=== PATIENT | female | born 2000 | race African-American/Black ===

== ENCOUNTER 2018-01-02 05:17 | Emergency (ER) | payer MEDICAID ==
[~2018-01-02] VITALS: Ht 160 cm; Wt 67.0 kg
[~2018-01-02 05:17] MED LIST: AMOXICILLI250 MG/5 M OR; AMOXICILLIN500 MG PO; CORTISPORIN OTI10 ML OT; TYLENOL CHLD80 MG OR
[2018-01-02 07:00] VITALS: BP 110/68
== END 2018-01-02 07:00 | disposition home or self-care (01) ==
LOC: ED 05:17
DX: R51 Headache (principal)

== ENCOUNTER 2019-01-07 04:15 | Emergency (ER) | payer BC ==
[~2019-01-07] VITALS: Ht 30.5 cm; Wt 67.0 kg
[2019-01-07] MEDS ORDERED: TORADOL PO (05:53)
[2019-01-07] MEDS ORDERED: IMITREX100 M1 PO (05:53)
[2019-01-07 06:20] VITALS: BP 93/51
== END 2019-01-07 06:20 | disposition home or self-care (01) | DRG 103 ==
LOC: ED 04:15
DX: G43.909 Migraine, unspecified, not intractable, without status migrainosus (principal)

== ENCOUNTER 2019-03-01 20:25 | Emergency (ER) | payer BC ==
[~2019-03-01] VITALS: Ht 38.1 cm; Wt 67.8 kg
[~2019-03-01 20:25] MED LIST changes: +IMITREX100 M1 PO; +TORADOL PO
[2019-03-01] MEDS ORDERED: ZOFRAN4 MG/TAB PO (22:05)
[2019-03-01] MEDS ORDERED: MAXALT10 MG PO (22:05)
[2019-03-01 22:08] VITALS: BP 112/69
== END 2019-03-01 22:08 | disposition home or self-care (01) | DRG 103 ==
LOC: ED 20:25
DX: G43.909 Migraine, unspecified, not intractable, without status migrainosus (principal)

== ENCOUNTER 2019-04-07 | Emergency (ER) | payer BC ==
[~2019-04-07] MED LIST changes: +MAXALT10 MG PO; +ZOFRAN4 MG/TAB PO
[2019-04-07] MEDS ORDERED: AMOXICILLIN500 M2 PO (17:37)
== END 2019-04-07 18:17 | disposition home or self-care (01) | DRG 153 ==
DX: J02.9 Acute pharyngitis, unspecified (principal); R59.1 Generalized enlarged lymph nodes
CPT/HCPCS: J0561

== ENCOUNTER 2019-05-04 | Emergency (ER) | payer BC ==
[~2019-05-04] MED LIST changes: +AMOXICILLIN500 M2 PO
== END 2019-05-05 00:25 | disposition home or self-care (01) | DRG 103 ==
DX: G43.009 Migraine without aura, not intractable, without status migrainosus (principal)

== ENCOUNTER 2019-08-18 09:02 | Emergency (ER) | payer SELFPAY ==
[2019-08-18 11:03] VITALS: BP 105/61
== END 2019-08-18 11:05 | disposition home or self-care (01) | DRG 103 ==
LOC: ED 09:02
DX: G43.009 Migraine without aura, not intractable, without status migrainosus (principal); J02.9 Acute pharyngitis, unspecified

== ENCOUNTER 2020-01-02 23:29 | Emergency (ER) | payer OTHER ==
[~2020-01-02] VITALS: Ht 157.5 cm; Wt 72.2 kg
[2020-01-03] MEDS ORDERED: IBUPROFEN600 MG PO (00:26)
[2020-01-03] MEDS ORDERED: FLEXERIL5 M1 PO (01:09)
[2020-01-03 01:30] VITALS: BP 122/60
== END 2020-01-03 01:33 | disposition home or self-care (01) | DRG 552 ==
LOC: ED 23:29
DX: S16.1XXA Strain of muscle, fascia and tendon at neck level, initial encounter (principal); V49.40XA Driver injured in collision with unspecified motor vehicles in traffic accident, initial encounter

== ENCOUNTER 2020-03-10 14:12 | Emergency (ER) | payer SELFPAY ==
[~2020-03-10] VITALS: Ht 157.5 cm; Wt 68.0 kg
[~2020-03-10 14:12] MED LIST changes: +FLEXERIL5 M1 PO; +IBUPROFEN600 MG PO
[2020-03-10 15:41] VITALS: BP 114/67
== END 2020-03-10 15:59 | disposition home or self-care (01) | DRG 103 ==
LOC: ED 14:12
DX: G43.909 Migraine, unspecified, not intractable, without status migrainosus (principal)

== ENCOUNTER 2020-09-25 11:20 | Emergency (ER) | payer BC ==
[~2020-09-25] VITALS: Ht 157.5 cm; Wt 70.9 kg
[2020-09-25 12:35] LABS: URINE BILIRUBIN - DIPSTICK NEGATIVE (NEGATIVE); URINE BLOOD DIPSTICK NEGATIVE (NEGATIVE); URINE COLOR YELLOW; URINE GLUCOSE - DIPSTICK NEGATIVE (NEGATIVE); URINE KETONE TRACE mg/dL (NEGATIVE); URINE LEUK ESTERASE NEGATIVE (NEGATIVE); URINE PROTEIN - DIPSTICK NEGATIVE (NEG-TRACE)
[2020-09-25 12:37] LABS: URINE NITRITE - DIPSTICK NEGATIVE (Negative)
[2020-09-25 13:30] LABS: HEMATOCRIT 38.7 % (37.0-47.0); HEMOGLOBIN 12.2 g/dl (12.0-16.0); IMMATURE GRANULOCYTES 0.1 % (0.0-5.0); MEAN CELL VOLUME 89.6 fL CALC (80.0-100.0); MEAN CORPUSCULAR HGB 28.2 pG CALC (26.0-32.0); MEAN CORPUSCULAR HGB CONC 31.5 g/dL CAL (32.0-36.0); NEUT# 5.81 thou/uL (2.00-7.15); RED BLOOD COUNT 4.32 mill/uL (4.20-5.60); RED CELL DISTRI WIDTH 12.1 % (11.5-15.5)
[2020-09-25 13:37] LABS: ALBUMIN 4.3 g/dL (3.2-5.0); BUN 7 mg/dL (7-17); BUN/CREATININE RATIO 13 (12-20 (CALC)); CHLORIDE 99 mmol/l (95-108); CREATININE 0.5 mg/dL (0.5-1.0); GFR > 60 ML/MIN (>=60 (CALC)); GFR FOR AFR.AMER. > 60 ML/MIN (>=60 (CALC)); LIPASE 49 u/l (23-300); SGOT/AST 37 u/l (14-36); SODIUM 135 mmol/l (137-146); TOTAL PROTEIN 7.7 g/dL (6.3-8.2)
[2020-09-25 13:57] LABS: ALKALINE PHOSPHATASE 41 u/l (38-126); ANION GAP 14 (6-22 (CALC)); BILIRUBIN, TOTAL 0.6 mg/dL (0.0-1.4); CARBON DIOXIDE 26 mmol/l (22-30)
[2020-09-25 15:45] VITALS: BP 121/61
== END 2020-09-25 15:58 | disposition home or self-care (01) | DRG 700 ==
LOC: ED 11:20
PROVIDERS: Family Medicine
DX: N32.9 Bladder disorder, unspecified (principal); R51.9 Headache, unspecified
CPT/HCPCS: Q9967

== ENCOUNTER 2021-03-07 13:09 | Emergency (ER) | payer BC ==
[~2021-03-07] VITALS: Ht 157.5 cm; Wt 73.1 kg
[2021-03-07 14:35] VITALS: BP 110/48
== END 2021-03-07 14:35 | disposition home or self-care (01) | DRG 179 ==
LOC: ED 13:09
DX: U07.1 COVID-19 (principal)

== ENCOUNTER 2021-08-12 09:41 | Emergency (ER) | payer BC ==
[~2021-08-12] VITALS: Ht 157.5 cm; Wt 73.6 kg
[2021-08-12 09:47] VITALS: BP 118/74
[2021-08-12 10:00] VITALS: BP 110/71
[2021-08-12 10:53] LABS: URINE BILIRUBIN - DIPSTICK NEGATIVE (NEGATIVE); URINE BLOOD DIPSTICK NEGATIVE (NEGATIVE); URINE COLOR YELLOW; URINE GLUCOSE - DIPSTICK NEGATIVE (NEGATIVE); URINE KETONE NEGATIVE (NEGATIVE); URINE LEUK ESTERASE NEGATIVE (NEGATIVE); URINE PH 7.5 (4.5-8.0); URINE PROTEIN - DIPSTICK NEGATIVE (NEG-TRACE); URINE SPECIFIC GRAVITY 1.015
[2021-08-12 11:00] LABS: URINE NITRITE - DIPSTICK NEGATIVE (Negative)
[2021-08-12] MEDS ORDERED: FIORICET PO (11:45)
[2021-08-12 12:17] VITALS: BP 110/71
== END 2021-08-12 12:27 | disposition home or self-care (01) | DRG 103 ==
LOC: ED 09:41
PROVIDERS: Emergency Medicine
DX: R51.9 Headache, unspecified (principal)

== ENCOUNTER 2021-10-12 21:14 | Emergency (ER) | payer BC ==
[~2021-10-12] VITALS: Ht 157.5 cm; Wt 75.4 kg
[~2021-10-12 21:14] MED LIST changes: +FIORICET PO
[2021-10-12 21:32] VITALS: BP 121/84
[2021-10-12 22:01] VITALS: BP 122/72
[2021-10-12] MEDS ORDERED: FIORICET PO (22:18)
[2021-10-12 22:24] VITALS: BP 122/72
== END 2021-10-12 22:28 | disposition home or self-care (01) | DRG 103 ==
LOC: ED 21:14
DX: G43.009 Migraine without aura, not intractable, without status migrainosus (principal)

== ENCOUNTER 2022-04-08 11:46 | Emergency (ER) | payer BC ==
[~2022-04-08] VITALS: Ht 157.5 cm; Wt 75.0 kg
[2022-04-08] MEDS ORDERED: FLONASE AL50 MCG/ACT (13:06)
[2022-04-08] MEDS ORDERED: BENZONATATE200 MG PO (13:06)
[2022-04-08] MEDS ORDERED: ZYRTEC10 MG PO (13:06)
[2022-04-08 13:13] VITALS: BP 125/76
== END 2022-04-08 13:21 | disposition home or self-care (01) | DRG 203 ==
LOC: ED 11:46
DX: J45.901 Unspecified asthma with (acute) exacerbation (principal); Z20.822 Contact with and (suspected) exposure to COVID-19

== ENCOUNTER 2023-09-01 09:02 | Emergency (ER) | payer BC ==
[~2023-09-01] VITALS: Ht 157.5 cm; Wt 74.8 kg
[~2023-09-01 09:02] MED LIST changes: +ANUSOL-HC25 MG RE; +BENZONATATE200 MG PO; +FLONASE AL50 MCG/ACT; +PROCTO-MED HC2.5 % PR; +ZYRTEC10 MG PO
[2023-09-01 09:45] VITALS: BP 107/70
[2023-09-01 09:53] VITALS: BP 107/70
== END 2023-09-01 09:54 | disposition home or self-care (01) | DRG 153 ==
LOC: ED 09:02
DX: J02.9 Acute pharyngitis, unspecified (principal)

== ENCOUNTER 2023-10-23 12:48 | Emergency (ER) | payer BC ==
[2023-10-23] VITALS (9 sets, daily range): BP systolic 98–122; BP diastolic 54–77
[~2023-10-23] VITALS: Ht 157.5 cm; Wt 77.1 kg
[2023-10-23] MEDS ORDERED: KETOROLAC TROMETHAMINE 30 MG/ML SDV IV ONE (13:10)
[2023-10-23] MEDS ORDERED: DEXAMETHASONE SOD. PHOSPHATE 10 MG/ML VIAL IV ONE (13:10)
[2023-10-23] MEDS ORDERED: METOCLOPRAMIDE HCL 10 MG/2 ML SDV IV ONE (13:10)
[2023-10-23] MEDS ORDERED: SODIUM CHLORIDE 0.9% 1,000 ML IV ONE (13:10)
[2023-10-23 13:33] LABS: BASO% 0.4 % (0-3); EOS% 0.6 % (0-8); HEMATOCRIT 36.8 % (37.0-47.0); HEMOGLOBIN 11.5 g/dl (12.0-16.0); LYMPH% 42.2 % (15-41); MEAN CELL VOLUME 88.5 fL CALC (80.0-100.0); MEAN CORPUSCULAR HGB 27.6 pG CALC (26.0-32.0); MEAN CORPUSCULAR HGB CONC 31.3 g/dL CAL (32.0-36.0); MONO% 9.2 % (2-13); NEUT# 2.48 thou/uL (2.00-7.15); NEUT% 47.6 % (42-76); RED BLOOD COUNT 4.16 mill/uL (4.20-5.60); RED CELL DISTRI WIDTH 12.5 % (11.5-15.5)
[2023-10-23 13:44] LABS: ALBUMIN 4.4 g/dL (3.2-5.0); BILIRUBIN, TOTAL 0.3 mg/dL (0.02-1.3); CREATININE 0.6 mg/dL (0.5-1.0); POTASSIUM 3.8 mmol/l (3.5-5.1); TOTAL PROTEIN 7.7 g/dL (6.3-8.2)
== END 2023-10-23 14:53 | disposition home or self-care (01) | DRG 103 ==
LOC: ED 12:48
PROVIDERS: Emergency Medicine
DX: G43.909 Migraine, unspecified, not intractable, without status migrainosus (principal)

== ENCOUNTER 2024-02-29 13:00 | Emergency (ER) | payer BC ==
[~2024-02-29] VITALS: Ht 157.5 cm; Wt 79.0 kg
[~2024-02-29 13:00] MED LIST changes: +COLACE100 MG PO; +MIRALAX17 GM PO
[2024-02-29 13:35] VITALS: BP 107/71
[2024-02-29 13:50] LABS: BASO% 0.5 % (0-3); HEMATOCRIT 37.1 % (37.0-47.0); HEMOGLOBIN 11.6 g/dl (12.0-16.0); IMMATURE GRANULOCYTES 0.3 % (0.0-5.0); LYMPH% 9.9 % (15-41); MEAN CORPUSCULAR HGB 28.2 pG CALC (26.0-32.0); MEAN CORPUSCULAR HGB CONC 31.3 g/dL CAL (32.0-36.0); MONO% 10.7 % (2-13); NEUT# 2.95 thou/uL (2.00-7.15); NEUT% 78.6 % (42-76); RED BLOOD COUNT 4.12 mill/uL (4.20-5.60)
[2024-02-29 14:00] VITALS: BP 113/69
[2024-02-29 14:06] LABS: ALBUMIN 4.4 g/dL (3.2-5.0); ALKALINE PHOSPHATASE 44 u/l (38-126); ANION GAP 14 (6-22 (CALC)); BILIRUBIN, TOTAL 0.4 mg/dL (0.02-1.3); BUN 4 mg/dL (7-17); BUN/CREATININE RATIO 7 (12-20 (CALC)); CARBON DIOXIDE 23 mmol/l (22-30); CHLORIDE 103 mmol/l (95-108); CREATININE 0.7 mg/dL (0.5-1.0); ESTIMATED GFR 123 ML/MIN (>=90 (CALC)); POTASSIUM 3.9 mmol/l (3.5-5.1); SGOT/AST 23 u/l (14-36); SODIUM 137 mmol/l (137-146); TOTAL PROTEIN 7.6 g/dL (6.3-8.2)
[2024-02-29] MEDS ORDERED: ZPAK PO (14:31)
[2024-02-29] MEDS ORDERED: NAPROXEN500 MG PO (14:31)
[2024-02-29 15:10] VITALS: BP 113/69
== END 2024-02-29 15:25 | disposition home or self-care (01) | DRG 153 ==
LOC: ED 13:00
PROVIDERS: Family Medicine
DX: J06.9 Acute upper respiratory infection, unspecified (principal); Z20.822 Contact with and (suspected) exposure to COVID-19